=== PATIENT | male | born 1995 | race African-American/Black ===

== ENCOUNTER 2018-02-10 04:01 | Emergency (ER) | payer MEDICAID ==
[~2018-02-10] VITALS: Ht 185.4 cm; Wt 100.0 kg
[2018-02-10 04:06] VITALS: Ht 185.4 cm; Wt 100.0 kg
[2018-02-10] MEDS ORDERED: OMNICEF300 MG PO (05:17)
[2018-02-10 05:31] VITALS: BP 128/68
== END 2018-02-10 05:31 | disposition home or self-care (01) ==
LOC: D.ER 04:01
DX: H66.91 Otitis media, unspecified, right ear (principal); J01.90 Acute sinusitis, unspecified; R09.89 Other specified symptoms and signs involving the circulatory and respiratory systems; J02.9 Acute pharyngitis, unspecified; D57.1 Sickle-cell disease without crisis; F17.200 Nicotine dependence, unspecified, uncomplicated

== ENCOUNTER 2018-07-31 10:36 | Emergency (ER) | payer MEDICAID ==
[~2018-07-31] VITALS: Ht 185.4 cm; Wt 101.2 kg
[~2018-07-31 10:36] MED LIST: OMNICEF300 MG PO
[2018-07-31 10:37] VITALS: BP 154/70; Ht 185.4 cm; Wt 101.2 kg
== END 2018-07-31 12:22 | disposition home or self-care (01) ==
LOC: D.ER 10:36
DX: S33.5XXA Sprain of ligaments of lumbar spine, initial encounter (principal); X58.XXXA Exposure to other specified factors, initial encounter; Y93.89 Activity, other specified; Y92.89 Other specified places as the place of occurrence of the external cause

== ENCOUNTER 2018-09-18 23:25 | Emergency (ER) | payer MEDICAID ==
[~2018-09-18] VITALS: Ht 185.4 cm; Wt 110.5 kg
[2018-09-18 23:34] VITALS: Ht 185.4 cm; Wt 110.5 kg
[2018-09-18 23:52] LABS: HEMATOCRIT 45.6 % (42.0-54.0); HEMOGLOBIN 16.2 g/dL (13.5-17.5); LYMPHOCYTES 29.7 % (15-50); MCH 30.7 pg (26.0-34.0); MCHC 35.5 g/dL (31.0-37.0); MCV 86.5 fL (80.0-100.0); NEUTROPHILS 64.1 % (40-80); PLATELET COUNT 323 10x3/uL (130-400); RBC 5.27 10x6/uL (4.20-6.10); WBC 10.8 10x3/uL (4.8-10.8)
[2018-09-19 00:05] LABS: APTT 32.4 SECONDS (22.8-39.4); INR 0.99 (0.85-1.17); PROTIME 12.6 SECONDS (11.6-15.0)
[2018-09-19 00:21] LABS: ALBUMIN 4.2 g/dL (3.4-5.0); ALKALINE PHOSPHATASE 138 U/L (46-116); ALT (SGPT) 105 U/L (10-68); BILIRUBIN - TOTAL 0.45 mg/dL (0.2-1.3); CALC OSMOLALITY 276 mosm/kg (275-300); CALCIUM 8.7 mg/dL (8.5-10.1); CARBON DIOXIDE 32.4 mmol/L (21.0-32.0); CHLORIDE - SERUM 102 mmol/L (98-107); CKMB 0.6 U/L (0.0-3.6); CREATINE KINASE 260 UL (21-232); CREATININE - SERUM 1.1 mg/dL (0.6-1.3); GLUCOSE 101 mg/dL (74-106); MAGNESIUM - SERUM 1.9 mg/dL (1.8-2.4); POTASSIUM - SERUM 4.1 mmol/L (3.5-5.1); PROTEIN - SERUM 8.1 g/dL (6.4-8.2); SODIUM 138 mmol/L (136-145); UREA NITROGEN 15 mg/dL (7-18); eGFR NON AFRICAN AMERICAN 87 mL/min (90-120)
[2018-09-19 00:24] LABS: TROPONIN-I < 0.017 ng/mL (0.000-0.060)
[2018-09-19] MEDS ORDERED: BUPROPION HCL75 MG PO (02:37)
[2018-09-19 02:51] VITALS: BP 121/76
== END 2018-09-19 02:50 | disposition home or self-care (01) ==
LOC: D.ER 23:25
PROVIDERS: Emergency Medicine
DX: F41.9 Anxiety disorder, unspecified (principal); R94.5 Abnormal results of liver function studies